=== PATIENT | male | born 1995 | race Two or more races ===

== ENCOUNTER 2018-01-24 09:36 | Emergency (ER) | payer MEDICAID ==
[~2018-01-24] VITALS: Ht 160 cm; Wt 71.4 kg
[2018-01-24 09:48] VITALS: Ht 160 cm; Wt 71.4 kg
[2018-01-24 10:45] LABS: BASOPHIL % 0.4 % (0-2); PLATELET COUNT 177 x10^3mcL (130-400)
[2018-01-24 11:08] LABS: CALCIUM 9.1 mg/dL (8.5-10.1); CARBON DIOXIDE 29.6 mmol/L (21-32); CHLORIDE SERUM 103 mmol/L (98-107); CREATININE SERUM 0.9 mg/dL (0.7-1.3); GFR1 > 60 mL/min; GLUCOSE SERUM 104 mg/dL (74-106); POTASSIUM SERUM 3.9 mmol/L (3.5-5.1); SODIUM SERUM 141 mmol/L (136-145)
[2018-01-24 11:20] LABS: ALBUMIN 4.4 g/dL (3.4-5.0); ALKALINE PHOSPHATASE 104 U/L (46-116); ALT/SGPT 25 U/L (16-63); AST/SGOT 18 U/L (15-37); BILIRUBIN TOTAL 0.9 mg/dL (0.20-1.00); T4(THYROXINE) 7.3 ug/dL (4.7-13.3); TOTAL PROTEIN, SERUM 7.6 g/dL (6.4-8.2)
[2018-01-24 11:54] LABS: microscopic required? NO
[2018-01-24 12:04] LABS: urine erythrocyte NEGATIVE (NEGATIVE)
[2018-01-24 12:29] LABS: AMPHETAMINE QUAL UR NONE DETECTED (NEG <=1000)
[2018-01-24 13:10] VITALS: BP 142/69
== END 2018-01-24 13:10 | disposition home or self-care (01) ==
LOC: ED 09:36
PROVIDERS: Emergency Medicine
DX: F12.10 Cannabis abuse, uncomplicated (principal); G47.00 Insomnia, unspecified; J45.909 Unspecified asthma, uncomplicated
CPT/HCPCS: 36415; 83880; G0480; Q0092

== ENCOUNTER 2019-10-13 11:13 | Emergency (ER) | payer OTHER ==
[~2019-10-13] VITALS: Ht 170.2 cm; Wt 89.4 kg
[2019-10-13 11:28] VITALS: Ht 170.2 cm; Wt 89.4 kg
[2019-10-13 12:10] VITALS: BP 124/70
== END 2019-10-13 12:10 | disposition home or self-care (01) ==
LOC: ED 11:13
DX: S50.11XA Contusion of right forearm, initial encounter (principal); V40.5XXA Car driver injured in collision with pedestrian or animal in traffic accident, initial encounter; Y93.I9 Activity, other involving external motion; Y92.413 State road as the place of occurrence of the external cause; Y99.8 Other external cause status
CPT/HCPCS: Q0092